=== PATIENT | male | born 1990 | race African-American/Black ===

== ENCOUNTER 2020-12-25 12:03 | Emergency (ER) | payer OTHER ==
[~2020-12-25] VITALS: Ht 185.4 cm; Wt 113.4 kg
[2020-12-25] MEDS ORDERED: FLEXERIL PO (12:17)
[2020-12-25] MEDS ORDERED: IBUPROFEN 600600 M1 PO ×2 (12:18→13:14)
[2020-12-25] MEDS ORDERED: METHOCARBAMOL500 M2 PO (13:14)
[2020-12-25 13:38] VITALS: BP 121/78
== END 2020-12-25 13:38 | disposition home or self-care (01) ==
LOC: ER 12:03
DX: R07.89 Other chest pain (principal); M54.2 Cervicalgia; M25.512 Pain in left shoulder; Z88.0 Allergy status to penicillin